=== PATIENT | male | born 1995 | race Caucasian/White ===

== ENCOUNTER 2017-09-04 14:36 | Emergency (ER) | payer MEDICAID, OTHER ==
[~2017-09-04] VITALS: Ht 170.2 cm; Wt 86.1 kg
[~2017-09-04 14:36] MED LIST: ALBU18HF INHALATION; ALBU8.5H3 INH; AZIT250T94 PO; PRED20TA PO
[2017-09-04 14:44] VITALS: Ht 170.2 cm; Wt 86.1 kg
[2017-09-04] MEDS ORDERED: IPRATROPIUM (NEB) 0.5 MG/2.5 ML AMP NEB STA (17:13)
[2017-09-04] MEDS ORDERED: ALBUTEROL 0.083% (NEB) 2.5 MG/3 ML AMP NEB STA (17:13)
--- NOTE | 2017-09-04 17:28 | ERD ---
ER Documentation Chief Complaint Chief Complaint cough and sob x 4 days HPI 22-year-old male with a history of asthma comes in with cough, wheezing for 4 days. Patient has had a dry cough, with wheezing but came to the emergency room because of his shortness of breath and he feels as if he is about to run out of his inhaler. He has not had any fevers, chills. ROS All systems reviewed and are negative except as per history of present illness. Medications Home Meds Active Scripts Cetirizine Hcl* (Zyrtec*) 10 Mg Capsule, 10 MG PO DAILY, #10 TAB.CHEW Prov:GHULAM VILLA PA-C 09/04/17 Albuterol Sulfate* (Ventolin HFA*) 18 Gm Hfa.aer.ad, 2 PUFF INHALATION Q4H, #1 INHALER Prov:GHULAM VILLA PA-C 09/04/17 Prednisone* (Prednisone*) 20 Mg Tab, 40 MG PO DAILY for 4 Days, TAB Prov:GHULAM VILLA PA-C 09/04/17 Prednisone* (Prednisone*) 20 Mg Tab, 40 MG PO DAILY for 4 Days, TAB Prov:MAICO MONTIEL PA-C 08/22/16 Albuterol Sulfate* (Proair HFA*) 8.5 Gm Hfa.aer.ad, 2 PUFF INH Q4, #1 INHALER Prov:MAICO MONTIEL PA-C 08/22/16 Azithromycin* (Zithromax*) 250 Mg Tablet, 250 MG PO .ZPACK DIRECTED, #6 TAB TAKE 500 MG (2 TABS) THE FIRST DAY THEN 250 MG (1 TAB) DAYS 2-5 Prov:MAICO MONTIEL PA-C 08/22/16 Albuterol Sulfate* (Ventolin HFA*) 18 Gm Hfa.aer.ad, 2 PUFF INHALATION Q4H, #1 INHALER Prov:MINNIE LOVE PA-C 08/09/16 Allergies Allergies: Coded Allergies: No Known Allergy (Unverified , 08/22/16) PMhx/Soc History of Surgery: No Anesthesia Reaction: No Hx Neurological Disorder: No Hx Respiratory Disorders: No Hx Cardiac Disorders: No Hx Psychiatric Problems: No Hx Miscellaneous Medical Probl: No (DENIES MED AND SURG HX.) Hx Alcohol Use: No Hx Substance Use: No Hx Tobacco Use: No Physical Exam Vitals Vital Signs Date Time Temp Pulse Resp B/P Pulse Ox O2 Delivery O2 Flow Rate FiO2 09/04/17 18:38 134 22 122/74 94 Room Air 09/04/17 17:46 128 20 95 21 09/04/17 14:44 98.3 130 20 128/90 94 Physical Exam General: Well-developed, well-nourished. The patient appears in no acute distress. HEENT: Head is normocephalic, atraumatic. No scleral icterus. Neck: Supple. Nontender. Lungs: Wheezing bilaterally, no rales or rhonchi. Patient is nonlabored. Heart: Regular rate and rhythm. S1 and S2 are normal. No murmurs, gallops, or rubs. Abdomen: Soft, nontender, nondistended. Bowel sounds are normoactive. Extremities: No clubbing or cyanosis. Normal pulses. Moving extremities x 4. No weakness. Neurologic: Alert and oriented 3. No focal deficits. Skin: Normal turgor. No rash or lesions. Results 24 hrs Current Medications Medications (Trade) Dose Ordered Sig/Cecilio Route PRN Reason Start Time Stop Time Status Last Admin Dose Admin Albuterol (Proventil 0.083% (Neb)) 7.5 mg ONCE STAT NEB 09/04/17 17:13 09/04/17 17:15 DC 09/04/17 17:45 Ipratropium [place] (Atrovent 0.02% (Neb)) 0.5 mg ONCE STAT NEB 09/04/17 17:13 09/04/17 17:15 DC 09/04/17 17:45 Prednisone 40 mg 40 mg ONCE ONCE PO 09/04/17 17:30 09/04/17 17:31 DC 09/04/17 17:20 Sodium Chloride (NS) 1,000 ml @ 1,000 mls/hr Q1H ONCE IV 09/04/17 19:00 09/04/17 19:59 09/04/17 18:54 Procedures/MDM ED COURSE: Patient was given albuterol, Atrovent and prednisone emergency room. The patient was given IV fluids, 1 L intravenously to treat tachycardia. His heart rate was reduced down to 110. MEDICAL DECISION MAKIN-year-old male presents with cough, shortness of breath and asthma symptoms the patient had wheezing upon examination, had a breathing treatment with Atrovent, albuterol has significant improvement of symptoms. He did have persistent tachycardia with a heart rate of 130, which is the same prior to the breathing treatment when he was triaged. His previous visit shows that his heart rate was 112 when he had been seen for cough, he was given a breathing treatment and this may have also caused persistent tachycardia despite improving his respiratory symptoms. He was therefore given a fluid bolus of normal saline 1 L, his repeat heart rate was 110 and is stable for outpatient management and discharged home. Departure Diagnosis: Primary Impression: Asthma exacerbation Condition: GHULAM Li PA-C Sep 04, 2017 17:28
[2017-09-04] MEDS ORDERED: predniSONE 20 MG TAB PO ONE (17:30)
[2017-09-04] MEDS ORDERED: PRED20TA PO (17:55)
[2017-09-04] MEDS ORDERED: ALBU18HF INHALATION (17:55)
[2017-09-04] MEDS ORDERED: CETI10CA PO (17:55)
[2017-09-04] MEDS ORDERED: SOD CHLORIDE 0.9% 1,000 ML IV ONE (19:00)
[2017-09-04 19:40] VITALS: BP 114/74; PULSE 113; RESP 16; TEMP 97.9
== END 2017-09-04 19:48 | disposition home or self-care (01) ==
LOC: FTE 14:36
DX: J45.901 Unspecified asthma with (acute) exacerbation (principal)
CPT/HCPCS: 94664; J7030; J7512; Z7502; Z7610

== ENCOUNTER 2018-12-26 18:50 | Emergency (ER) | payer SELFPAY ==
[~2018-12-26] VITALS: Ht 167.6 cm; Wt 98.0 kg
[~2018-12-26 18:50] MED LIST changes: -ALBU8.5H3 INH; +ALBU8.5H8 INH; +AZIT250T PO; -AZIT250T94 PO; +CETI10CA PO
[2018-12-26 19:39] VITALS: Ht 167.6 cm; Wt 98.0 kg
[2018-12-26] MEDS ORDERED: HYDROCODONE/APAP (5/325) TAB PO ONE (23:00)
[2018-12-26] MEDS ORDERED: LIDOCAINE 1% (MPF) 5 ML VIAL INFIL ONE (23:00)
[2018-12-27] MEDS ORDERED: SULF1TAB31 PO (00:02)
[2018-12-27] MEDS ORDERED: ACET-141 PO (00:02)
[2018-12-27] MEDS ORDERED: CEPH-443 PO (00:02)
[2018-12-27] MEDS ORDERED: IBUP-1561 PO (00:02)
--- NOTE | 2018-12-27 00:07 | ERD ---
ER Documentation Chief Complaint Chief Complaint "bump on neck" x2.5 weeks, worse w/ movement. no fever/ST/other symptoms HPI 23-year-old female presents for posterior left neck bump times 2 weeks. He states that he has been out of 10 pain at times. He states it is worse with movement. He denies fevers. No significant past medical history. ROS All systems reviewed and are negative except as per history of present illness. Medications Home Meds Active Scripts Acetaminophen* (Acetaminophen*) 500 MG Extra Strength Tablet, 500 MG PO Q4H PRN for PAIN AND OR ELEVATED TEMP, #30 TAB Prov:SAMI BUSBY DO 12/27/18 Ibuprofen* (Motrin*) 400 Mg Tab, 400 MG PO Q6H PRN for PAIN AND OR ELEVATED TEMP, #30 TAB Prov:SAMI BUSBY DO 12/27/18 Cephalexin* (Keflex*) 500 Mg Capsule, 500 MG PO TID for abscess for 5 Days, #15 CAP Prov:SAMI BUSBY DO 12/27/18 Sulfamethoxazole/Trimethoprim* (Bactrim Ds* Tablet) 1 Each Tablet, 1 TAB PO BID for abscess for 5 Days, #10 TAB Prov:SAMI BUSBY DO 12/27/18 Cetirizine Hcl* (Zyrtec*) 10 Mg Capsule, 10 MG PO DAILY, #10 TAB.CHEW Prov:GHULAM VILLA PA-C 09/04/17 Albuterol Sulfate* (Ventolin HFA*) 18 Gm Hfa.aer.ad, 2 PUFF INHALATION Q4H, #1 INHALER Prov:GHULAM VILLA PA-C 09/04/17 Prednisone* (Prednisone*) 20 Mg Tab, 40 MG PO DAILY for 4 Days, TAB Prov:GHULAM VILLA PA-C 09/04/17 Prednisone* (Prednisone*) 20 Mg Tab, 40 MG PO DAILY for 4 Days, TAB Prov:MAICO MONTIEL PA-C 08/22/16 Albuterol Sulfate* (Proair HFA*) 8.5 Gm Hfa.aer.ad, 2 PUFF INH Q4, #1 INHALER Prov:MAICO MONTIEL PA-C 08/22/16 Azithromycin* (Zithromax*) 250 Mg Tablet, 250 MG PO .MATTIE DIRECTED, #6 TAB TAKE 500 MG (2 TABS) THE FIRST DAY THEN 250 MG (1 TAB) DAYS 2-5 Prov:MAICO MONTIEL PA-C 08/22/16 Albuterol Sulfate* (Ventolin HFA*) 18 Gm Hfa.aer.ad, 2 PUFF INHALATION Q4H, #1 INHALER Prov:MINNIE LOVE PA-C 08/09/16 Allergies Allergies: Coded Allergies: No Known Allergy (Unverified , 08/22/16) PMhx/Soc History of Surgery: No Anesthesia Reaction: No Hx Neurological Disorder: No Hx Respiratory Disorders: No Hx Cardiac Disorders: No Hx Psychiatric Problems: No Hx Miscellaneous Medical Probl: No (SEIZURE) Hx Alcohol Use: No Hx Substance Use: No Hx Tobacco Use: No Smoking Status: Never smoker Physical Exam Vitals Vital Signs Date Temp Pulse Resp B/P (MAP) Pulse Ox O2 O2 Flow FiO2 Time Delivery Rate 12/26/18 98.1 90 16 144/90 97 19:39 (108) Physical Exam Const: No acute distress Neck: Full range of motion. No meningismus. Mass noted to be about 2 cm with underlying fluctuance and feels a little bit warm Resp: Clear to auscultation bilaterally Cardio: Regular rate and rhythm, no murmurs Skin: No petechiae or rashes Ext: No cyanosis, or edema Neur: Awake and alert Psych: Normal Mood and Affect Results 24 hrs Current Medications Medications Dose Sig/Cecilio Start Time Status Last (Trade) Ordered Route PRN Stop Time Admin Dose Reason Admin 1 tab ONCE ONCE 12/26/18 DC 12/26/18 Acetaminophen PO 23:00 12/26/18 22:46 / 23:01 Hydrocodone Bitart ([place] (5/325)) Lidocaine 5 ml ONCE ONCE 12/26/18 DC (Xylocaine INFIL 23:00 12/26/18 1% (Mpf)) 23:01 Procedures/MDM Abscess Incision and Drainage with irrigation by me: Location: Left posterior neck Anesthesia: [Local 1% Lidocaine without epinephrine] Technique: [Irrigated. Disrupted loculations w/ instrumentation] Packing: [Iodoform packing] Complications: [Neurovascularly intact post procedure] 48 hour wound check. Scar minimization instructions given. Patient's skin symptoms have stabilized while they have been evaluated in the department and are appropriate for outpatient care and work up. Exam and w/u not consistent w/ sepsis, deep space infection, or foreign body. Medical Decision Making: Differential diagnosis includes but not limited to abscess, cellulitis, dermatitis, Patient appeared well on physical exam. Examination consistent with a left neck abscess ED course: Incision and drainage was done see procedure note above Prescription(s): Patient given prescription for supportive medication(s), patient was given Keflex and Bactrim. Advised to return to the ER in 48 hours for a wound check and removal of iodoform packing Patient advised to follow up with PCP in 1-2 days. Patient advised to return to ED for new or worsening symptoms. Patient stable on discharge from the ED. Disclaimer: Inadvertent spelling and grammatical errors are likely due to EHR/di ctation software use and do not reflect on the overall quality of patient care. Also, please note that the electronic time recorded on this note does not necessarily reflect the actual time of the patient encounter. Departure Diagnosis: Primary Impression: Abscess Condition: Fair Patient Instructions: Abscess, Incision And Drainage Referrals: [facility] YOU HAVE RECEIVED A MEDICAL SCREENING EXAM AND THE RESULTS INDICATE THAT YOU DO NOT HAVE A CONDITION THAT REQUIRES URGENT TREATMENT IN THE EMERGENCY DEPARTMENT. FURTHER EVALUATION AND TREATMENT OF YOUR CONDITION CAN WAIT UNTIL YOU ARE SEEN IN YOUR DOCTORS OFFICE WITHIN THE NEXT 1-2 DAYS. IT IS YOUR RESPONSIBILITY TO MAKE AN APPOINTMENT FOR FOLOW-UP CARE. IF YOU HAVE A PRIMARY DOCTOR --you should call your primary doctor and schedule an appointment IF YOU DO NOT HAVE A PRIMARY DOCTOR YOU CAN CALL OUR PHYSICIAN REFERRAL HOTLINE AT IF YOU CAN NOT AFFORD TO SEE A PHYSICIAN YOU CAN CHOSE FROM THE FOLLOWING OUR [facility] CL[facility] [address] [facility] [address] [facility] [address] [facility] [address] [facility] [address] [facility]. [facility]. [address] Additional Instructions: Call your primary care doctor TOMORROW for an appointment during the next 1-2 days.See the doctor sooner or return here if your condition worsens before your appointment time. Return to ED in 48 hours for wound check. SAMI BUSBY DO Dec 27, 2018 00:07
[2018-12-27 00:32] VITALS: BP 131/89; PULSE 80; RESP 16
== END 2018-12-27 00:34 | disposition home or self-care (01) ==
LOC: FTE 18:50
DX: L02.11 Cutaneous abscess of neck (principal)

== ENCOUNTER 2018-12-28 08:02 | Emergency (ER) | payer MEDICAID ==
[~2018-12-28] VITALS: Ht 167.6 cm; Wt 97.3 kg
[~2018-12-28 08:02] MED LIST changes: +ACET-141 PO; +CEPH-443 PO; +IBUP-1561 PO; +SULF1TAB31 PO
[2018-12-28 08:04] VITALS: BP 142/98; PULSE 89; RESP 18; Ht 167.6 cm; Wt 97.3 kg
--- NOTE | 2018-12-28 08:54 | ERD ---
ER Documentation Chief Complaint Chief Complaint RECHECK WOUND ABSCESS ON NECK I&D 2 DAYS AGO HPI Is a 23-year-old male patient who presents to the emergency room with request for recheck for wound abscess to left neck. I&D was performed 2 days ago. Denies any fevers, states pain has decreased, he has not needed to change the outer dressing. He has been compliant with taking his Keflex and Bactrim. He has not received care from PCP. Patient was provided with community resources. ROS All systems reviewed and are negative except as per history of present illness. Medications Home Meds Active Scripts Acetaminophen* (Acetaminophen*) 500 MG Extra Strength Tablet, 500 MG PO Q4H PRN for PAIN AND OR ELEVATED TEMP, #30 TAB Prov:SAMI BUSBY DO 12/27/18 Ibuprofen* (Motrin*) 400 Mg Tab, 400 MG PO Q6H PRN for PAIN AND OR ELEVATED TEMP, #30 TAB Prov:SAMI BUSBY DO 12/27/18 Cephalexin* (Keflex*) 500 Mg Capsule, 500 MG PO TID for abscess for 5 Days, #15 CAP Prov:SAMI BUSBY DO 12/27/18 Sulfamethoxazole/Trimethoprim* (Bactrim Ds* Tablet) 1 Each Tablet, 1 TAB PO BID for abscess for 5 Days, #10 TAB Prov:SAMI BUSBY DO 12/27/18 Cetirizine Hcl* (Zyrtec*) 10 Mg Capsule, 10 MG PO DAILY, #10 TAB.CHEW Prov:GHULAM VILLA PA-C 09/04/17 Albuterol Sulfate* (Ventolin HFA*) 18 Gm Hfa.aer.ad, 2 PUFF INHALATION Q4H, #1 INHALER Prov:GHULAM VILLA PA-C 09/04/17 Prednisone* (Prednisone*) 20 Mg Tab, 40 MG PO DAILY for 4 Days, TAB Prov:GHULAM VILLA PA-C 09/04/17 Prednisone* (Prednisone*) 20 Mg Tab, 40 MG PO DAILY for 4 Days, TAB Prov:MAICO MONTIEL PA-C 08/22/16 Albuterol Sulfate* (Proair HFA*) 8.5 Gm Hfa.aer.ad, 2 PUFF INH Q4, #1 INHALER Prov:MAICO MONTIEL PA-C 08/22/16 Azithromycin* (Zithromax*) 250 Mg Tablet, 250 MG PO .ZPACK DIRECTED, #6 TAB TAKE 500 MG (2 TABS) THE FIRST DAY THEN 250 MG (1 TAB) DAYS 2-5 Prov:MAICO MONTIEL PA-C 08/22/16 Albuterol Sulfate* (Ventolin HFA*) 18 Gm Hfa.aer.ad, 2 PUFF INHALATION Q4H, #1 INHALER Prov:MINNIE LOVE PA-C 08/09/16 Allergies Allergies: Coded Allergies: No Known Allergy (Unverified , 08/22/16) PMhx/Soc Medical and Surgical Hx: pt denies Medical Hx, pt denies Surgical Hx History of Surgery: No Anesthesia Reaction: No Hx Neurological Disorder: No Hx Respiratory Disorders: No Hx Cardiac Disorders: No Hx Psychiatric Problems: No Hx Miscellaneous Medical Probl: No (SEIZURE) Hx Alcohol Use: No Hx Substance Use: No Hx Tobacco Use: No Smoking Status: Never smoker FmHx Family History: No diabetes, No coronary disease, No other Physical Exam Vitals Vital Signs Date Temp Pulse Resp B/P (MAP) Pulse Ox O2 O2 Flow FiO2 Time Delivery Rate 12/28/18 97.4 89 18 142/98 98 08:04 (113) Physical Exam Const: No acute distress Head: Atraumatic Eyes: Normal Conjunctiva ENT: Normal External Ears, Nose and Mouth. Neck: Full range of motion. No meningismus. Resp: Clear to auscultation bilaterally Cardio: Regular rate and rhythm, no murmurs Abd: Soft, non tender, non distended. Normal bowel sounds Skin: No petechiae or rashes. Left neck: area of induration [id number], pink, soft, scant purulent drainage followed by sanguineous drainage. Gauze strip removed intact. Wound bed, edges, periwound healing appropriately. No tunneling, no undermining. Back: No midline or flank tenderness Ext: No cyanosis, or edema Neur: Awake and alert Psych: Normal Mood and Affect Procedures/MDM This 23-year-old male patient presents with request for wound check to abscess to left neck. Iodoform gauze removed, wound inspected for loculations, no tunneling, no undermining, scant purulent drainage followed by sanguineous drainage. Wound edges and wound bed healing within normal limits as expected. Periwound area without erythema or cellulitis. Patient without pain outside of wound area. Neck supple, no neurological deficits. No worsening signs of infection, no increased fever, increased pain, vital signs stable. Patient was given wound care instructions and encouraged to establish care with primary care provider. Patient was provided with community resources at last visit. Patient requesting social work msw consult for emergency [facility]. vehicle delivery worker called to meet with patient. She given strict instructions to continue antibiotics, and ER precautions. Departure Diagnosis: Primary Impression: Abscess Additional Impression: Encounter for wound re-check Condition: Stable Patient Instructions: Wound Care Additional Instructions: Thank you very much for allowing us to participate in your care. Your health and safety is our top priority at [facility]. Call your primary care doctor TOMORROW for an appointment during the next 2-4 days and bring all the information and medications prescribed. Have prescriptions filled and follow precisely the directions on the label. If the symptoms get worse and your provider is unavailable, return to the Emergency Department immediately. HAVE WOUND RECHECKED IN 3 DAYS. YOU MAY RETURN TO THIS ED, HOWEVER IT IS ADVISABLE FOR YOU TO ESTABLISH CARE WITH PRIMARY CARE PROVIDER WITH CLINIC OF YOUR CHOICE, COMMUNITY CLINIC LIST HAS BEEN PROVIDED TO YOU. PLEASE RETURN TO ED IMMEDIATELY WITH FEVER, WORSENING PAIN, THICK DISCHARGE FROM WOUND. KEEP WOUND CLEAN AND DRY. REPLACE DRESSING DAILY OR WHEN YOU NOTICE DRAINAGE ON THE BANDAGE. USE WARM COMPRESS 2-3 TIMES PER DAY, 20 MIN. CONTINUE TO TAKE AND COMPLETE ALL ANTIBIOTICS THAT WERE PRESCRIBED TO YOU!!! PLEASE TAKE MOTRIN EVERY 6-8 HOURS OR TYLENOL EVERY 4-6 HOURS NEEDED FOR PAIN AND DISCOMFORT. DOMINIK MEDINA NP Dec 28, 2018 08:54
== END 2018-12-28 10:22 | disposition home or self-care (01) ==
LOC: FTE 08:02
DX: L02.11 Cutaneous abscess of neck (principal)
CPT/HCPCS: 99281

== ENCOUNTER 2018-12-31 15:04 | Emergency (ER) | payer MEDICAID ==
[~2018-12-31] VITALS: Ht 167.6 cm; Wt 97.1 kg
[2018-12-31 15:25] VITALS: RESP 18; Ht 167.6 cm; Wt 97.1 kg
--- NOTE | 2018-12-31 17:35 | ERD ---
ER Documentation Chief Complaint Chief Complaint wound check for I&D on back of neck HPI 23-year-old male presents for wound check. Patient had abscess drained last week. Patient states that his been taking the antibiotics as prescribed and has been using warm compresses. Patient denies any fevers, chills, pain, swelling, edema, erythema. ROS All systems reviewed and are negative except as per history of present illness. Medications Home Meds Active Scripts Acetaminophen* (Acetaminophen*) 500 MG Extra Strength Tablet, 500 MG PO Q4H PRN for PAIN AND OR ELEVATED TEMP, #30 TAB Prov:SAMI BUSBY DO 12/27/18 Ibuprofen* (Motrin*) 400 Mg Tab, 400 MG PO Q6H PRN for PAIN AND OR ELEVATED TEMP, #30 TAB Prov:SAMI BUSBY DO 12/27/18 Cephalexin* (Keflex*) 500 Mg Capsule, 500 MG PO TID for abscess for 5 Days, #15 CAP Prov:SAMI BUSBY DO 12/27/18 Sulfamethoxazole/Trimethoprim* (Bactrim Ds* Tablet) 1 Each Tablet, 1 TAB PO BID for abscess for 5 Days, #10 TAB Prov:SAMI BUSBY DO 12/27/18 Cetirizine Hcl* (Zyrtec*) 10 Mg Capsule, 10 MG PO DAILY, #10 TAB.CHEW Prov:GHULAM VILLA PA-C 09/04/17 Albuterol Sulfate* (Ventolin HFA*) 18 Gm Hfa.aer.ad, 2 PUFF INHALATION Q4H, #1 INHALER Prov:GHULAM VILLA PA-C 09/04/17 Prednisone* (Prednisone*) 20 Mg Tab, 40 MG PO DAILY for 4 Days, TAB Prov:GHULAM VILLA PA-C 09/04/17 Prednisone* (Prednisone*) 20 Mg Tab, 40 MG PO DAILY for 4 Days, TAB Prov:MAICO MONTIEL PA-C 08/22/16 Albuterol Sulfate* (Proair HFA*) 8.5 Gm Hfa.aer.ad, 2 PUFF INH Q4, #1 INHALER Prov:MAICO MONTIEL PA-C 08/22/16 Azithromycin* (Zithromax*) 250 Mg Tablet, 250 MG PO .MATTIE DIRECTED, #6 TAB TAKE 500 MG (2 TABS) THE FIRST DAY THEN 250 MG (1 TAB) DAYS 2-5 Prov:MAICO MONTIEL PA-C 08/22/16 Albuterol Sulfate* (Ventolin HFA*) 18 Gm Hfa.aer.ad, 2 PUFF INHALATION Q4H, #1 INHALER Prov:CHRISTALMINNIE Su Raymon DENG 08/09/16 Allergies Allergies: Coded Allergies: No Known Allergy (Unverified , 08/22/16) PMhx/Soc Medical and Surgical Hx: pt denies Surgical Hx History of Surgery: No Anesthesia Reaction: No Hx Neurological Disorder: No Hx Respiratory Disorders: No Hx Cardiac Disorders: No Hx Psychiatric Problems: No Hx Miscellaneous Medical Probl: No (SEIZURE) Hx Alcohol Use: No Hx Substance Use: No Hx Tobacco Use: No Smoking Status: Never smoker FmHx Family History: No diabetes, No coronary disease, No other Physical Exam Vitals Vital Signs Date Temp Pulse Resp B/P (MAP) Pulse Ox O2 O2 Flow FiO2 Time Delivery Rate 12/31/18 98.9 100 18 141/84 97 15:25 (103) Physical Exam Const: No acute distress Head: Atraumatic Eyes: Normal Conjunctiva ENT: Normal External Ears, Nose and Mouth. Neck: Full range of motion. No meningismus. Resp: Clear to auscultation bilaterally Cardio: Regular rate and rhythm, no murmurs Abd: Soft, non tender, non distended. Normal bowel sounds Skin: Small area of erythema located over the neck consistent with previously drained abscess. There is no fluctuance or induration. There is no tenderness to palpation. No lymphatic streaking noted. No discharge noted. No signs of infection Back: No midline or flank tenderness Ext: No cyanosis, or edema Neur: Awake and alert Psych: Normal Mood and Affect Procedures/MDM Previously drained abscess appears to be healing without complications. I advised patient to continue taking the antibiotics as well as use warm compresses. I have low suspicion for acute space infection, sepsis, or any other emergent condition. Patient discharged with strict ER precautions. Patient advised to follow up with PMD. All questions answered at discharge. Departure Diagnosis: Primary Impression: Encounter for wound re-check Condition: Stable Patient Instructions: Wound Care Referrals: COMMUNITY CLINICS YOU HAVE RECEIVED A MEDICAL SCREENING EXAM AND THE RESULTS INDICATE THAT YOU DO NOT HAVE A CONDITION THAT REQUIRES URGENT TREATMENT IN THE EMERGENCY DEPARTMENT. FURTHER EVALUATION AND TREATMENT OF YOUR CONDITION CAN WAIT UNTIL YOU ARE SEEN IN YOUR DOCTORS OFFICE WITHIN THE NEXT 1-2 DAYS. IT IS YOUR RESPONSIBILITY TO MAKE AN APPOINTMENT FOR FOLOW-UP CARE. IF YOU HAVE A PRIMARY DOCTOR --you should call your primary doctor and schedule an appointment IF YOU DO NOT HAVE A PRIMARY DOCTOR YOU CAN CALL OUR PHYSICIAN REFERRAL HOTLINE AT IF YOU CAN NOT AFFORD TO SEE A PHYSICIAN YOU CAN CHOSE FROM THE FOLLOWING C [facility] [address] [facility] [address] [email or web address] [address] [facility] [address] [facility] [address] [facility]. [facility]. [address] Additional Instructions: FOLLOW UP WITH YOUR PRIMARY CARE PHYSICIAN TOMORROW.Return to this facility if you are not improving as expected. BERNA MITCHELL Dec 31, 2018 17:35
[2018-12-31 17:57] VITALS: BP 122/85; PULSE 100
== END 2018-12-31 17:58 | disposition home or self-care (01) ==
LOC: FTE 15:04
DX: Z48.01 Encounter for change or removal of surgical wound dressing (principal)
CPT/HCPCS: 99281

== ENCOUNTER 2019-05-15 08:39 | Emergency (ER) | payer MEDICAID, OTHER ==
[~2019-05-15] VITALS: Wt 88.7 kg
[~2019-05-15 08:39] MED LIST changes: +HYDR-3029 PO
[2019-05-15 08:40] VITALS: BP 140/87; PULSE 89; RESP 18
== END 2019-05-15 09:05 | disposition home or self-care (01) ==
LOC: FTE 08:39
DX: F41.9 Anxiety disorder, unspecified (principal)
CPT/HCPCS: 99283

== ENCOUNTER 2019-07-27 13:00 | Emergency (ER) | payer SELFPAY ==
[~2019-07-27] VITALS: Wt 78.2 kg
[~2019-07-27 13:00] MED LIST changes: +IBUP-1542 PO; +PHEN118L PO
[2019-07-27 13:12] VITALS: BP 119/72; PULSE 129; RESP 18
[2019-07-27] MEDS ORDERED: KETOROLAC 30 MG INJ IM STA (13:45)
== END 2019-07-27 15:37 | disposition home or self-care (01) ==
LOC: FTE 13:00
DX: R05 Cough (principal)
CPT/HCPCS: 71045; 96372; 99284; J1885